=== PATIENT | female | born 1990 | race Caucasian/White ===

== ENCOUNTER 2019-12-02 13:47 | Emergency (ER) | payer BC, OTHER ==
[~2019-12-02] VITALS: Ht 170.2 cm; Wt 56.7 kg
[2019-12-02 14:25] LABS: ABSOLUTE NEUTROPHILS 2.3 thou/uL (1.4-8.2); BASOPHILS 0.5 % (0.0-2.0); EOSINOPHILS 0.9 % (0.0-3.0); HEMATOCRIT 44.5 % (37.0-47.0); HEMOGLOBIN 14.5 gm/dL (12.0-15.0); MCH 31.8 pg (26.0-34.0); MCHC 32.5 g/dL (28.0-37.0); MCV 97.8 fL (80.0-100.0); MONOCYTES 9.9 % (1.0-8.0); PLATELET COUNT 165 thou/uL (150-400); POLYS 68.7 % (36.0-66.0); RBC 4.55 mil/uL (4.20-5.00); RDW 13.1 % (10.5-14.5); WBC 3.3 thou/uL (4.0-11.0)
[2019-12-02 14:30] LABS: CALCIUM 9.2 mg/dL (8.5-10.1); CREATININE 0.9 mg/dL (0.6-1.0); POTASSIUM 3.4 mmol/L (3.5-5.1)
[2019-12-02 14:36] LABS: ALBUMIN 4.5 g/dL (3.4-5.0); TOTAL BILIRUBIN 0.4 mg/dL (<0.1-1.0)
[2019-12-02 14:49] LABS: URINE BILIRUBIN NEGATIVE (Negative); URINE BLOOD NEGATIVE (Negative); URINE CLARITY CLEAR; URINE COLOR YELLOW; URINE GLUCOSE-RANDOM* NEGATIVE (Negative); URINE KETONES NEGATIVE (Negative); URINE LEUKOCYTES-REFLEX NEGATIVE (Negative); URINE NITRITE-REFLEX NEGATIVE (Negative); URINE PROTEIN (DIPSTICK) NEGATIVE (Negative); URINE SPECIFIC GRAVITY 1.015 (1.005-1.035); URINE UROBILINOGEN 0.2 E.U./dl (0.2-1.0)
[2019-12-02] MEDS ORDERED: LEVSIN0.125 MG PO (15:47)
[2019-12-02] MEDS ORDERED: ONDANSETRON HCL4 M2 PO (15:47)
[2019-12-02 16:10] VITALS: BP 102/60
== END 2019-12-02 16:10 | disposition home or self-care (01) ==
LOC: ER 13:47
PROVIDERS: Physician Assistant
DX: R10.31 Right lower quadrant pain (principal); R10.33 Periumbilical pain; R19.7 Diarrhea, unspecified; R11.0 Nausea